=== PATIENT | female | born 1960 | race Caucasian/White ===

== ENCOUNTER 2020-02-03 06:57 | Inpatient (IN) | payer SELFPAY ==
[~2020-02-03] VITALS: Ht 160 cm; Wt 79.8 kg
[2020-02-03] VITALS (7 sets, daily range): BP systolic 109–168; BP diastolic 54–88
[~2020-02-03 06:57] MED LIST: ANUSOL-HC25 MG RC; CELEXA10 MG; HORMONE PILL; HYDROCODONE BIT1 T11; IBU800 M1 PO; MEDROL DOSEPAK4 MG PO; MOTRIN800 MG PO; Miralax Powder255 GM PO; NEURONTIN300 MG PO; NKHM; PERCOCET 325 MG1 TA2 PO; PHENERGAN25 M1 PO; PROVERA10 MG PO; STOOL SOFTENER100 MG; TRAMADOL HCL50 MG PO; TRAZODONE50 MG PO; ZOFRAN ODT4 MG SL
[2020-02-03 11:02] LABS: BASO % 0.3 % (0.0-1.0); EOS # 0.1 10*3/uL (0.0-0.4); EOS % 0.6 % (1.0-4.0); LYMPH # 1.9 10*3/uL (1.3-4.4); LYMPH % 20.2 % (27.0-41.0); MEAN CELL VOLUME 94.6 fl (81.0-99.0); MEAN CORPUSCULAR HGB 30.4 pg (27.0-31.0); MEAN CORPUSCULAR HGB CONC 32.1 g/dl (33.0-37.0); MEAN PLATELET VOLUME 9.9 fl (9.6-12.3); MONO # 0.8 10*3/uL (0.1-1.0); MONO % 8.5 % (3.0-9.0); NEUT # 6.6 10*3/uL (2.3-7.9); NEUT % 70.1 % (47.0-73.0); PLATELET COUNT AUTOMATED 284 10*3/uL (130-400); RED BLOOD COUNT 4.44 10*6/uL (4.10-5.10); RED CELL DISTRI WIDTH 12.7 % (0-14.5); WHITE BLOOD COUNT 9.5 10*3/uL (4.8-10.8)
[2020-02-03 11:14] LABS: ACT PARTIAL THROMBO TIME 26.1 SECONDS (20.0-32.1); INTERNATIONAL NORM RATIO 0.9 (2.0-3.5)
[2020-02-03 11:27] LABS: ALBUMIN 3.2 gm/dl (3.1-4.5); ALKALINE PHOSPHATASE 81 U/L (45-117); BUN 11 mg/dl (7-24); CHLORIDE 105 mmol/L (98-107); CREATININE 0.93 mg/dL (0.55-1.02); POTASSIUM 4.2 mmol/L (3.5-5.1); SGOT/AST 21 IU/L (3-35); SGPT/ALT 27 U/L (12-78); SODIUM 136 mmol/L (136-145); TOTAL PROTEIN 7.6 gm/dL (6.4-8.2)
[2020-02-03 19:13] LABS: URINE AMPHETAMINES < 1000 (1000ng/ml); URINE BARBITURATES < 200 (200ng/ml); URINE BENZODIAZEPINES < 200 (200ng/ml); URINE CANNABINOIDS (THC) < 50 (50ng/ml); URINE COCAINE > 300 (300ng/ml); URINE METHADONE < 300 (300ng/ml); URINE OPIATES > 300 (300ng/ml)
[2020-02-03 19:15] LABS: URINE PHENCYCLIDINE < 25 (25ng/ml)
[2020-02-04 05:27] LABS: BUN 6 mg/dl (7-24); CHLORIDE 104 mmol/L (98-107); CHOLESTEROL 188 mg/dL (<200); POTASSIUM 3.9 mmol/L (3.5-5.1); SODIUM 137 mmol/L (136-145); TRIGLYCERIDES 80 mg/dl (<150); VLDL CHOLESTEROL 16 mg/dL (6-40)
[2020-02-04 05:29] LABS: HDL CHOLESTEROL 72 mg/dl (40-60); LDL CHOLESTEROL 100 mg/dL (9-159)
[2020-02-04 06:08] LABS: BASO % 0.4 % (0.0-1.0); EOS % 0.2 % (1.0-4.0); HEMATOCRIT 43.4 % (37.0-47.0); LYMPH # 1.2 10*3/uL (1.3-4.4); LYMPH % 12.3 % (27.0-41.0); MEAN CELL VOLUME 95.4 fl (81.0-99.0); MEAN CORPUSCULAR HGB 30.5 pg (27.0-31.0); MEAN PLATELET VOLUME 10.5 fl (9.6-12.3); MONO # 0.9 10*3/uL (0.1-1.0); NEUT # 7.9 10*3/uL (2.3-7.9); NEUT % 77.8 % (47.0-73.0); PLATELET COUNT AUTOMATED 289 10*3/uL (130-400); RED BLOOD COUNT 4.55 10*6/uL (4.10-5.10); RED CELL DISTRI WIDTH 12.8 % (0-14.5); WHITE BLOOD COUNT 10.1 10*3/uL (4.8-10.8)
[2020-02-04 07:44] LABS: VITAMIN D, 25-HYDROXY 9.8 ng/mL (30-100)
[2020-02-04 10:55] VITALS: BP 126/67
[2020-02-04 22:08] VITALS: BP 138/74
[2020-02-04] MEDS ORDERED: DULOXETINE HCL60 MG PO (22:41)
[2020-02-04] MEDS ORDERED: TRAZODONE50 MG PO (22:41)
[2020-02-04] MEDS ORDERED: ESTRADIOL1 MG PO (22:41)
[2020-02-04] MEDS ORDERED: CYCLOBENZAPRINE10 MG PO (22:41)
[2020-02-04] MEDS ORDERED: VISTARIL25 M2 PO (23:16)
[2020-02-05 08:00] VITALS: BP 106/74
[2020-02-05 12:00] VITALS: BP 133/83
== END 2020-02-05 14:20 | disposition home or self-care (01) | DRG 556 ==
LOC: ED 06:57 → EDHOLD 18:27 → 5E 02-04 20:01
PROVIDERS: Emergency Medicine; Family Medicine; Internal Medicine; ADMIT Internal Medicine; ATTEND Internal Medicine
DX: M79.604 Pain in right leg (principal); R26.2 Difficulty in walking, not elsewhere classified; R73.9 Hyperglycemia, unspecified; M19.90 Unspecified osteoarthritis, unspecified site; G62.9 Polyneuropathy, unspecified; E55.9 Vitamin D deficiency, unspecified; F17.210 Nicotine dependence, cigarettes, uncomplicated; Z88.2 Allergy status to sulfonamides; Z90.710 Acquired absence of both cervix and uterus; Z98.51 Tubal ligation status; Z83.3 Family history of diabetes mellitus; Z82.49 Family history of ischemic heart disease and other diseases of the circulatory system; Z71.6 Tobacco abuse counseling; W18.39XA Other fall on same level, initial encounter; Y93.89 Activity, other specified; Y92.89 Other specified places as the place of occurrence of the external cause; Y99.8 Other external cause status

== ENCOUNTER → 2022-07-06 | Outpatient (CLI) | payer OTHER ==
[~2022-07-06] MED LIST changes: +CYCLOBENZAPRINE10 MG PO; +DULOXETINE HCL60 MG PO; +ESTRADIOL1 MG PO; +VISTARIL25 M2 PO
== END | disposition home or self-care (01) ==
LOC: MRI 00:40
PROVIDERS: ATTEND Podiatrist
DX: S96.911A Strain of unspecified muscle and tendon at ankle and foot level, right foot, initial encounter (principal); M25.871 Other specified joint disorders, right ankle and foot; X58.XXXA Exposure to other specified factors, initial encounter; Y93.89 Activity, other specified; Y92.89 Other specified places as the place of occurrence of the external cause; Y99.8 Other external cause status

== ENCOUNTER → 2022-08-03 | Outpatient (CLI) | payer OTHER | END | disposition home or self-care (01) | LOC: MRI 07-20 01:29 → LAB 00:24 → MRI 00:24 | PROVIDERS: ATTEND Podiatrist | DX: Z01.818 Encounter for other preprocedural examination (principal); S96.811A Strain of other specified muscles and tendons at ankle and foot level, right foot, initial encounter; M79.89 Other specified soft tissue disorders; R60.9 Edema, unspecified; X58.XXXA Exposure to other specified factors, initial encounter; Y93.89 Activity, other specified; Y92.89 Other specified places as the place of occurrence of the external cause; Y99.8 Other external cause status ==

== ENCOUNTER → 2022-10-11 | Outpatient (CLI) | payer OTHER | END | disposition home or self-care (01) | LOC: MRI 10-02 00:25 | PROVIDERS: ATTEND Podiatrist Foot & Ankle Surgery | DX: S99.921D Unspecified injury of right foot, subsequent encounter (principal); S99.922D Unspecified injury of left foot, subsequent encounter; R60.9 Edema, unspecified; M20.42 Other hammer toe(s) (acquired), left foot; M20.41 Other hammer toe(s) (acquired), right foot; X58.XXXD Exposure to other specified factors, subsequent encounter ==

== ENCOUNTER 2023-08-01 07:37 | Emergency (ER) | payer OTHER ==
[~2023-08-01] VITALS: Ht 160 cm; Wt 83.9 kg
[2023-08-01] MEDS ORDERED: Metoclopramide Hydrochloride 10 MG/2 ML AMP IV ONE (08:10)
[2023-08-01] MEDS ORDERED: SODIUM CHLORIDE 0.9% 1,000 ML IV ONE (08:10)
[2023-08-01] MEDS ORDERED: Ketorolac Tromethamine 15 MG/ML VIAL IV ONE (08:10)
[2023-08-01] MEDS ORDERED: diphenhydrAMINE hydrochloride 50 MG/ML VIAL IV ONE (08:10)
[2023-08-01] MEDS ORDERED: ACETAMINOPHEN 325 MG TAB PO ONE (08:10)
[2023-08-01 08:35] LABS: BASO % 0.5 % (0.0-1.0); EOS # 0.1 10*3/uL (0.0-0.4); EOS % 1.1 % (1.0-4.0); HEMATOCRIT 39.8 % (37.0-47.0); LYMPH # 1.7 10*3/uL (1.3-4.4); LYMPH % 20.7 % (27.0-41.0); MEAN CELL VOLUME 95.4 fl (81.0-99.0); MEAN CORPUSCULAR HGB 30.5 pg (27.0-31.0); MEAN CORPUSCULAR HGB CONC 31.9 g/dl (33.0-37.0); MEAN PLATELET VOLUME 9.4 fl (9.6-12.3); MONO # 0.7 10*3/uL (0.1-1.0); MONO % 8.6 % (3.0-9.0); NEUT # 5.5 10*3/uL (2.3-7.9); PLATELET COUNT AUTOMATED 274 10*3/uL (130-400); RED BLOOD COUNT 4.17 10*6/uL (4.10-5.10)
[2023-08-01 08:59] LABS: BUN 15 mg/dl (9-23); CHLORIDE 107 mmol/L (98-107); POTASSIUM 3.6 mmol/L (3.4-5.1)
[2023-08-01] MEDS ORDERED: IBU800 M1 PO (09:35)
[2023-08-01] MEDS ORDERED: REGLAN10 M1 PO (09:35)
== END 2023-08-01 09:44 | disposition home or self-care (01) ==
LOC: ED 07:37
PROVIDERS: Emergency Medicine
DX: R51.9 Headache, unspecified (principal); F14.10 Cocaine abuse, uncomplicated; F17.210 Nicotine dependence, cigarettes, uncomplicated; Z88.2 Allergy status to sulfonamides; Z90.710 Acquired absence of both cervix and uterus; Z98.51 Tubal ligation status; Z98.890 Other specified postprocedural states